=== PATIENT | female | born 2000 | race Caucasian/White ===

== ENCOUNTER 2021-10-30 18:25 | Emergency (ER) | payer OTHER, SELFPAY ==
[2021-10-30 18:45] VITALS: BP 118/64; PULSE 78; RESP 16; TEMP 37.1; O2SAT 98
--- NOTE | 2021-10-30 19:43 | ED.URI ---
HPI - URI/Sore Throat General Chief Complaint: Upper Respiratory Infection Stated Complaint: cough sore throat nausea Time Seen by Provider: 10/30/21 19:44 Source: patient, RN notes reviewed and old records reviewed Mode of arrival: ambulatory Limitations: no limitations History of Present Illness HPI Narrative: 21 year ld female who presents to [facility] care with complaints of sore throat, nasal congestion with drainage, fatigue , nausea without vomiting, and cough since Thursday 5 days duration. Patient reports that she has been taking DayQuil and Nyquil for her symptoms without resolution. Patient reports that she has had previous strep throat in past with similar symptoms, rates her pain 9/10. Patient denies any known fever chills or sweat, or body aches, patient has had covid vaccinations. MD elicited complaint: cough, sore throat, rhinorrhea and nasal congestion Treatments prior to arrival: other (DayQuil and NyQuil) Related Data Home Medications Medication Instructions Recorded Confirmed norethin-ethinyl estradiol-iron 1 tablet PO DAILY 10/30/21 10/30/21 0.8 mg-25 mcg(24)/75 mg(4) chew tablet ([place] [facility]) Allergies Allergy/AdvReac Type Severity Reaction Status Date / Time No Known Allergies Allergy Verified 10/30/21 19:03 Review of Systems Review of Systems: CONSTITUTIONAL: Denies fever, chills, or sweats. EYES: Denies visual changes, redness, or discharge. ENT: Positive for rhinorrhea, congestion, sore throat, no otalgia. CARDIOVASCULAR: Denies chest pain, palpitations, or edema. RESPIRATORY:Positive for cough denies dyspnea. GASTROINTESTINAL: Denies abdominal pain,some nausea without vomiting, or diarrhea. GENITOURINARY: Denies dysuria or hematuria. SKIN: Denies rash or itching. MUSCULOSKELETAL: Denies back pain, joint pain, or myalgia. NEUROLOGIC: Denies headache, numbness, or weakness. PSYCHIATRIC: Denies anxiety or depression. [facility] Past Medical History Medical History (Updated 11/01/21 @ 21:29 by Marine Watts NP) Bacterial sinusitis Strep throat Surgical History Surgical History (Updated 11/01/21 @ 21:20 by Marine Watts NP) [place] teeth extracted Social History Social History (Updated 11/01/21 @ 21:21 by Marine Watts NP) Smoking status: Never smoker Alcohol intake: never Substance use: never Living arrangements: with family Gender identity (if verbalized by the patient): Female Comments At time of signature, agree with nursing past medical, surgical, social and family history. There is no relevant family history pertinent to the presenting complaint Exam Narrative: GENERAL: Well-appearing, well-nourished, and in no acute distress. HEAD: Normocephalic, atraumatic. EYES: PERRLA and EOMI. ENT: Nares red with clear rhinorrhea no epistaxis. Mucous membranes moist. TM's normal with good light reflex, throat red with no lesions or exudates, tonsil enlarged red and swollen, post nasal drainage NECK: Supple.lymphadenopathy CHEST: Clear to auscultation. No respiratory distress.SAO2 98% on room air HEART: Regular rate and rhythm. No murmur heard. Normal peripheral pulses. ABDOMEN: Soft, nontender, nondistended, normal active bowel sounds. EXTREMITIES: Normal range of motion. No edema. SKIN: Warm, dry, no rash. NEURO: No focal deficits. Alert and oriented x3. Course Course Level of Care: Express Care Visit Vital Signs Vital signs: Vital Signs Temperature 37.1 C 10/30/21 18:45 Pulse Rate 78 10/30/21 18:45 Respiratory Rate 16 10/30/21 18:45 Blood Pressure 118/64 10/30/21 18:45 Pulse Oximetry 98 10/30/21 18:45 Oxygen Delivery Room Air 10/30/21 18:45 Temperature 37.1 C 10/30/21 18:45 Pulse Rate 78 10/30/21 18:45 Respiratory Rate 16 10/30/21 18:45 Blood Pressure 118/64 10/30/21 18:45 Pulse Oximetry 98 10/30/21 18:45 Oxygen Delivery Room Air 10/30/21 18:45 MDM - URI/Sore Throat Differential Diagnosis Differential
== END 2021-10-30 20:03 | disposition home or self-care (01) ==
PROVIDERS: Emergency Provider Registered Nurse
DX: J32.9 Chronic sinusitis, unspecified (principal); J11.1 Influenza due to unidentified influenza virus with other respiratory manifestations
CPT/HCPCS: 99213; G0463

== ENCOUNTER 2022-10-07 18:29 | Emergency (ER) | payer OTHER, SELFPAY ==
--- NOTE | 2022-10-07 19:08 | ED.FEMALEGU ---
HPI - Female Genitourinary General Chief complaint: Urogenital-Female Stated complaint: unk Source: patient and RN notes reviewed Limitations: no limitations History of Present Illness HPI Narrative: Patient is a 21-year-old female with complaints of dysuria, urinary frequency, urinary urgency, and hematuria starting this morning. She denies known fevers or chills. Denies abdominal pain, nausea, vomiting, diarrhea. States that she has had UTIs in the past, and her symptoms are similar to those she has experienced then. Related Data Home Medications Medication Instructions Recorded Confirmed norethin-ethinyl estradiol-iron 1 tablet PO DAILY 10/30/21 10/07/22 0.8 mg-25 mcg(24)/75 mg(4) chew tablet ([place] [facility]) Allergies Allergy/AdvReac Type Severity Reaction Status Date / Time No Known Allergies Allergy Verified 10/30/21 19:03 Review of Systems Review of Systems: CONSTITUTIONAL: Denies fever, chills, or sweats. EYES: Denies visual changes, redness, or discharge. ENT: Denies otalgia and sore throat CARDIOVASCULAR: Denies chest pain, palpitations, or edema. RESPIRATORY: Denies cough or dyspnea. GASTROINTESTINAL: Denies abdominal pain, nausea, vomiting, or diarrhea. GENITOURINARY: Reports dysuria, urinary frequency, urinary urgency, hematuria. SKIN: Denies rash or itching. MUSCULOSKELETAL: Denies back pain, joint pain, or myalgia. NEUROLOGIC: Denies headache, numbness, or weakness. Pertinent positives per HPI. PMFSH Past Medical History Medical History Bacterial sinusitis Strep throat Surgical History Surgical History [place] teeth extracted Social History Social History Smoking status: Never smoker Alcohol intake: never Substance use: never Living arrangements: with family Gender identity (if verbalized by the patient): Female Comments At the time of my signature, I reviewed and agree with the nursing past medical, surgical, social, and family history. There is no relevant family history pertinent to the patient complaint. Exam Narrative: GENERAL: This is a well-nourished, well-developed patient, in no apparent distress. HEAD: normocephalic, atraumatic. EYES: Sclera clear/white. Vision is grossly intact. EARS: External ears normal. Hearing grossly intact. NOSE: External nose normal with no obvious nasal discharge, nares without redness, no rhinorrhea. THROAT: Mucous membranes moist, posterior pharynx clear. NECK: Neck supple, non-tender without lymphadenopathy, masses or thyromegaly. CARDIOVASCULAR: Regular rate and rhythm without murmurs, gallops, or rubs. RESPIRATORY: Clear to auscultation. Breath sounds equal bilaterally. No wheezes, rales, or rhonchi. GASTROINTESTINAL: Abdomen soft, non-tender, nondistended. Bowel sounds are active. No hepato-splenomegaly, or palpable masses. No guarding. SKIN: warm, intact with no suspicious lesions or rash, good texture and turgor. NEURO: awake, alert, and oriented to person, place and time. There were no obvious focal neurologic abnormalities. BACK: Nontender without deformity or crepitance. No flank tenderness. Course Course Level of Care: Express Care Visit Vital Signs Vital signs: Reviewed MDM - Female Genitourinary MDM Narrative Medical decision making narrative: We will send a urine culture off to the lab; if the culture identifies an organism that the prescribed antibiotic will not treat, you will receive a phone call from an urgent care staff member and an appropriate antibiotic will be prescribed. -Your symptoms should begin to improve within a day of starting antibiotics. But you should finish all the antibiotic pills you get. Otherwise your infection might come back. -Also recommend: drink more fluid. It might help flush out germs, and it does no harm -Tylenol/ib
== END 2022-10-07 18:43 | disposition home or self-care (01) ==
LOC: EXPBETH 18:43
PROVIDERS: Emergency Provider Nurse Practitioner; PCP Physician Assistant
DX: N39.0 Urinary tract infection, site not specified (principal)
CPT/HCPCS: 81003; 87086; 87088; 87147; 99213; G0463